=== PATIENT | male | born 1995 | race Caucasian/White ===

== ENCOUNTER 2017-04-01 09:12 | Emergency (ER) | payer MEDICAID ==
[~2017-04-01] VITALS: Ht 180.3 cm; Wt 81.2 kg
[~2017-04-01 09:12] MED LIST: LITH450T PO; METH20TA5 PO; MULT-257 PO
[2017-04-01 09:14] VITALS: BP 139/82
== END 2017-04-01 11:04 | disposition home or self-care (01) ==
LOC: ED 10:04
DX: T59.811A Toxic effect of smoke, accidental (unintentional), initial encounter (principal); J70.5 Respiratory conditions due to smoke inhalation; M94.0 Chondrocostal junction syndrome [Tietze]; B34.9 Viral infection, unspecified; Y92.098 Other place in other non-institutional residence as the place of occurrence of the external cause
CPT/HCPCS: 36415; 71020; 82375; 93005; 99285

== ENCOUNTER 2018-08-07 23:52 | Emergency (ER) | payer MEDICAID ==
[~2018-08-07] VITALS: Ht 180.3 cm; Wt 87.7 kg
--- NOTE | 2018-08-08 00:04 | NUR ---
DAISY TALBOT AT TRIAGE 1 FOR PIT
[2018-08-08] MEDS ORDERED: DIPH,PERTUSS(ACELL),TET VAC/PF 0.5 ML IM-VACC ONE ×2 (00:30→00:32)
--- NOTE | 2018-08-08 00:46 | NUR ---
DENISE UPDATED AT THIS TIME, UNDERSTANDING ABOUT WAIT, NAD
--- NOTE | 2018-08-08 01:30 | NUR ---
re-evaluation done. patient discharged with prescription and instruction. verbalized understanding.
[2018-08-08 01:31] VITALS: BP 132/78
== END 2018-08-08 01:32 | disposition home or self-care (01) ==
LOC: ED 08-08 01:09
DX: S00.83XA Contusion of other part of head, initial encounter (principal); S00.531A Contusion of lip, initial encounter; S00.511A Abrasion of lip, initial encounter; Y04.8XXA Assault by other bodily force, initial encounter; Y93.89 Activity, other specified; Y92.410 Unspecified street and highway as the place of occurrence of the external cause; Y99.8 Other external cause status
CPT/HCPCS: 70486; 90471; 90715